=== PATIENT | male | born 1985 | race African-American/Black ===

== ENCOUNTER 2016-12-13 11:03 | Emergency (ER) | payer MEDICAID ==
[~2016-12-13] VITALS: Ht 182.9 cm; Wt 85.0 kg
[~2016-12-13 11:03] MED LIST: no meds
[2016-12-13] MEDS ORDERED: LEVETIRACETAM 500MG PREMIX 100 ML IV ONE (11:30)
[2016-12-13 11:47] LABS: BASOPHILS % 0.6 % (0.0-2.0); EOSINOPHILS % 0.4 % (0.0-5.0); HEMATOCRIT. 42.4 % (42.0-52.0); HEMOGLOBIN. 14.5 g/dL (14.0-18.0); LYMPHOCYTES % 22.6 % (20.0-50.0); MEAN CORPUSCULAR HEMOGLOBIN 32.9 pg (28.0-32.0); MEAN CORPUSCULAR VOLUME 96.2 fL (80.0-94.0); MEAN PLATELET VOLUME 7.2 fl (7.4-10.4); MONOCYTES % 11.7 % (2.0-8.0); NEUTROPHILS % 64.7 % (40.0-76.0); PLATELET 289 x1000/uL (130-400); RED BLOOD CELL COUNT 4.41 mill/uL (4.7-6.1); RED CELL DISTRIBUTION WIDTH 13.1 % (11.6-14.6)
[2016-12-13 11:50] LABS: CHLORIDE 106 mEq/L (98-107)
[2016-12-13 11:51] LABS: INR 1.1; PROTHROMBIN TIME 11.3 sec
[2016-12-13 11:58] LABS: CARBON DIOXIDE 25 mEq/L (21-32); ETHANOL BLOOD < 10 mg/dL
[2016-12-13 15:36] VITALS: BP 131/74
== END 2016-12-13 15:20 | disposition home or self-care (01) ==
LOC: ER 11:46
DX: G40.909 Epilepsy, unspecified, not intractable, without status epilepticus (principal); S00.81XA Abrasion of other part of head, initial encounter; X58.XXXA Exposure to other specified factors, initial encounter; Y93.89 Activity, other specified; Y92.018 Other place in single-family (private) house as the place of occurrence of the external cause
CPT/HCPCS: 36415; 70450; 80053; 85025; 85610; 96365; 99285; G0482; J1953

== ENCOUNTER 2017-04-06 15:17 | Emergency (ER) | payer MEDICAID ==
[~2017-04-06] VITALS: Ht 190.5 cm; Wt 100.0 kg
[2017-04-06] MEDS ORDERED: KETOROLAC 60MG/2ML VIAL IM ONE (17:30)
[2017-04-06 17:37] VITALS: BP 133/80
== END 2017-04-06 17:39 | disposition home or self-care (01) ==
LOC: ER 15:17
DX: S02.5XXA Fracture of tooth (traumatic), initial encounter for closed fracture (principal); K04.7 Periapical abscess without sinus; R56.9 Unspecified convulsions; X58.XXXA Exposure to other specified factors, initial encounter; Y93.9 Activity, unspecified; Y92.9 Unspecified place or not applicable
CPT/HCPCS: 96372; 99283; J1885

== ENCOUNTER 2017-05-19 14:30 | Emergency (ER) | payer MEDICAID ==
[~2017-05-19] VITALS: Ht 188 cm; Wt 91.0 kg
[2017-05-19] MEDS ORDERED: HYDROCODONE/ACETAMINOPHEN 5/325MG TABLET PO ONE (16:00)
[2017-05-19] MEDS ORDERED: LORAZEPAM 0.5MG TABLET PO ONE (16:00)
[2017-05-19 16:55] VITALS: BP 110/79
== END 2017-05-19 17:06 | disposition home or self-care (01) ==
LOC: ER 14:44
DX: M79.601 Pain in right arm (principal); M79.604 Pain in right leg; V04.99XA Pedestrian with other conveyance injured in collision with heavy transport vehicle or bus, unspecified whether traffic or nontraffic accident, initial encounter; Y93.89 Activity, other specified; Y92.89 Other specified places as the place of occurrence of the external cause; Y99.8 Other external cause status
CPT/HCPCS: 73060; 73080; 73502; 99284